=== PATIENT | male | born 1990 | race Asian ===

== ENCOUNTER 2016-10-05 12:27 | Inpatient (IN) | payer MEDICAID, OTHER ==
--- NOTE | 2016-10-05 15:09 | EDPHY ---
H & P Stated Complaint: [facility] by [facility] for [facility], schizoaffective episode Source: Patient Exam Limitations: No limitations - Personal History Current Tetanus/Diphtheria Vaccine: Unsure Current Tetanus Diphtheria and Acellular Pertussis (TDAP): Unsure - Medical/Surgical History Hx Asthma: No Hx Chronic Respiratory Disease: No Hx Diabetes: No Hx Cardiac Disease: No Hx Renal Disease: No Hx Cirrhosis: No Hx Alcoholism: No Hx HIV/AIDS: No Hx Splenectomy or Spleen Trauma: No Other PMH: lactose intolerant, broken arm when 6 yo., wears contacts. bipolar, schizoaffective - Family History Significant Family History: No pertinent family hx - Social History Smoking Status: Never smoked Alcohol Use: None Drug Use: None Time Seen by Provider: 10/05/16 14:42 HPI/ROS: CHIEF COMPLAINT: Hallucinations HISTORY OF PRESENT ILLNESS: The patient is a 26-year-old man whose brother in law brings him to the mental health clinic and then they were referred to the emergency department for worsening schizoaffective disorder. The patient has a history of schizoaffective disorder with several hospitalizations. He takes long-acting invega injections as well as lithium. He has been taking his medications. However his employer and family have noticed over the last 5 days that he has been increasingly distracted and occasionally catatonic. He hears 5 voices typically; God, of the a possible Juan, his father and 2 others. He will not disclose to what they say to him. He is currently denying that he hears them. He does appear to be responding to internal stimuli. He is very hesitant and halting in his speech. He denies recent fevers or illness. He denies recent trauma. He denies being in any pain. He is here voluntarily. He does state that he has been drinking more regularly over the last few months with holiday parties. He denies any drug use. REVIEW OF SYSTEMS: Constitutional: denies: chills, fever, recent illness, recent injury EENTM: denies: blurred vision, double vision, nose congestion Respiratory: denies: cough, shortness of breath Cardiac: denies: chest pain, irregular heart rate, lightheadedness, palpitations Gastrointestinal/Abdominal: denies: abdominal pain, diarrhea, nausea, vomiting, blood streaked stools Genitourinary: denies: dysuria, frequency, hematuria, pain Musculoskeletal: denies: joint pain, muscle pain Skin: denies: lesions, rash, jaundice, bruising Neurological: denies: headache, numbness, paresthesia, tingling, dizziness, weakness Hematologic/Lymphatic: denies: blood clots, easy bleeding, easy bruising Immunologic/allergic: denies: HIV/AIDS, transplant EXAM: GENERAL: Well-appearing, well-nourished and in no acute distress. HEAD: Atraumatic, normocephalic. EYES: Pupils equal round and reactive to light, extraocular movements intact, sclera anicteric, conjunctiva are normal. ENT: TMs normal, nares patent, oropharynx clear without exudates. Moist mucous membranes. NECK: Normal range of motion, supple without lymphadenopathy or JVD. LUNGS: Breath sounds clear to auscultation bilaterally and equal. No wheezes rales or rhonchi. HEART: Regular rate and rhythm without murmurs, rubs or gallops. ABDOMEN: Soft, nontender, normoactive bowel sounds. No guarding, no rebound. No masses appreciated. BACK: No CVA tenderness, no spinal tenderness, step-offs or deformities EXTREMITIES: Normal range of motion, no pitting or edema. No clubbing or cyanosis. NEUROLOGICAL: Cranial nerves II through XII grossly intact. Normal speech, normal gait. 5/5 strength, normal movement in all extremities, normal sensation PSYCH: See above SKIN: Warm, dry, normal turgor, no visible rashes or lesions. (Vick Wu) Constitutional: Initial Vital Signs Temperature (C) 36.5 C 10/05/16 12:38 Heart Rate 80 10/05/16 12:38 Respiratory Rate 16 10/05/16 12:38 Blood Pressure 123/85 H 10/05/16 12:38 O2 Sat (%) 96 10/05/16 12:38 O2 Delivery Mode Room Air Allergies/Adverse Reactions: No Known Allergies Allergy (Unverified 10/05/16 12:43) Home Medications: Medication Instructions Recorded Paliperidone Palmitate [Invega 117 mg IM ONCE 10/05/16 Sustenna] [place] Carbonate ER [Eskalith Cr 900 mg PO HS 10/06/16 450 mg (*)] Medical Decision Making ED Course/Re-evaluation: 7:00 a.m.- The patient has been stable throughout my ER shift. He was evaluated by the mental health worker and the plan is to place him at [facility] later today. The case has been signed out to Dr. Aleman. (Jeannie Medina) Patient is currently here voluntarily. I will not place him on a hold. He denies suicidal or homicidal ideation. His nbcxllr-lo-cyi is going to stay with him. He consisting of blood. 5:30 p.m. The patient is medically cleared for psychiatric evaluation. 9:00 p.m. the patient is awaiting psychiatric evaluation. Care transferred to Dr. Mendel Toussaint. He is not currently on a hold but is here voluntarily. ( Vick Wu) Differential Diagnosis: Partial list of the Differential diagnosis considered include but were not limited to; schizophrenia, bipolar, medication reaction and although unlikely based on the history and physical exam, I also considered infection, head injury. (Vick Wu) - Data Points Laboratory Results: Laboratory Results 10/05/16 15:27 10/05/16 15:27 Departure - Departure Disposition: [facility] IP Clinical Impression: Acute psychosis Condition: Fair
[2016-10-05 15:35] LABS: % IMMATURE GRANULYOCYTES 0.3 % (0.0-1.1); ABSOLUTE IMMATURE GRANULOCYTES 0.03 10^3/uL (0.00-0.10); ADD DIFF? NO; ADD MORPH? NO; ADD SCAN? NO; ATYPICAL LYMPHOCYTE FLAG 0 (0-99); FRAGMENT RBC FLAG 0 (0-99); HEMATOCRIT 46.7 % (40.0-51.0); HEMOGLOBIN 16.2 g/dL (13.7-17.5); LEFT SHIFT FLG 0 (0-99); LIPEMIA HEMOLYSIS FLAG 90 (0-99); MEAN CELL HEMOGLOBIN 30.5 pg (27.9-34.1); MEAN CELL HEMOGLOBIN CONCENTR. 34.7 g/dL (32.4-36.7); MEAN CELL VOLUME 87.9 fL (81.5-99.8); MEAN PLATELET VOLUME 11.4 fL (8.7-11.7); PLATELET CLUMPS FLAG 0 (0-99); PLATELET COUNT 276 10^3/uL (150-400); RED BLOOD CELL COUNT 5.31 10^6/uL (4.40-6.38); RED CELL DISTRIBUTION WIDTH 11.9 % (11.5-15.2)
[2016-10-05 16:09] LABS: ANION GAP 13 mEq/L (8-16); CALCIUM 9.5 mg/dL (8.5-10.4); CARBON DIOXIDE 26 mEq/l (22-31); CHLORIDE 105 mEq/L (97-110); CREATININE 0.8 mg/dL (0.7-1.3); ETHANOL SERUM < 10 mg/dL (0-10); GLOMERULAR FILTRATION RATE > 60; GLUCOSE 118 mg/dL (70-100); LITHIUM 0.4 mEq/L (0.6-1.2); POTASSIUM 4.3 mEq/L (3.5-5.2); SODIUM 144 mEq/L (134-144)
[2016-10-06] MEDS ORDERED: NICOTINE POLACRILEX 2 MG GUM B PRN (13:53)
[2016-10-06] MEDS ORDERED: LORazepam 0.5 MG TAB PO PRN (13:53)
[2016-10-06] MEDS ORDERED: ACETAMINOPHEN 325 MG TAB PO PRN (13:53)
[2016-10-06] MEDS ORDERED: OLANZapine DISINTEGR 10 MG TAB PO PRN (13:53)
[2016-10-06] MEDS ORDERED: MAG HYDROX/AL HYDROX/SIMETH 30 ML UDCUP PO PRN (13:53)
[2016-10-06] MEDS ORDERED: MAGNESIUM HYDROXIDE 30 ML UDCUP PO PRN (13:53)
--- NOTE | 2016-10-06 15:41 | BCON ---
[f rep st] BEHAVIORAL HEALTH CONSULTATION INTERNAL MEDICINE CONSULTATION DATE OF CONSULTATION: 10/06/2016 REFERRING PHYSICIAN: Cheko Huizar MD REASON FOR CONSULTATION: Medical clearance for inpatient behavioral health stay. HISTORY OF PRESENT ILLNESS: Mr. Narvaez came to the emergency department with his [id number] with a complaint of worsening symptoms of schizoaffective disorder. He had been compliant with his medications; however, he was increasingly distracted and occasionally catatonic per the emergency department note, and he had been hearing voices. He was evaluated by the mental health team and admitted for further psychiatric care. He is currently without any acute complaints. PAST MEDICAL HISTORY: Schizoaffective disorder with prior psychiatric hospitalizations. Otherwise he denies any history of any medical or surgical conditions. MEDICATIONS: 1. Paliperidone sustained release injection. 2. [place]. ALLERGIES: There are no known drug allergies. SOCIAL HISTORY: He is a nonsmoker and nondrinker. He lives with roommates in [place]. He works in [employer]. FAMILY HISTORY: Noncontributory. REVIEW OF SYSTEMS: A 10-point review of systems was conducted and was negative. PHYSICAL EXAM: VITALS: Blood pressure is 117/75, heart rate is 73, respiratory rate is 14, oxygen saturation is 94% on room air, temperature is 36.6 degrees centigrade. His weight is 72.6 kg for a body mass index of 23.6. GENERAL: This is a well-nourished, well-developed man with long hair, well- groomed, cooperative, and in no acute distress. HEENT: Extraocular movements are intact. Pupils are equal, round, and reactive to light. Mucous membranes are moist. Dentition is in good condition. NECK: Supple. HEART: Regular rate and rhythm with no murmurs, rubs, or gallops. LUNGS: Clear to auscultation bilaterally. ABDOMEN: Soft, nontender, nondistended with normoactive bowel sounds. EXTREMITIES: There is no there is no cyanosis, clubbing, or edema. NEUROLOGIC: He is alert and oriented x3. Cranial nerves 2 -12 are grossly intact. He has a reduced blink rate. There is no focal weakness. Sensation is intact to light touch. Gait is within normal limits. LABORATORY STUDIES: Drawn in the emergency department: CBC revealed a very slightly elevated neutrophil count at 6.82 and was otherwise within normal limits. Serum chemistry revealed an elevated glucose at 118 however, this was likely not fasting. Otherwise, renal function and electrolytes were within normal limits. Toxicology in the serum showed a lithium level subtherapeutic at 0.4 and negative for ethyl alcohol. Toxicology in the urine was negative for any substances of abuse. ASSESSMENT AND PLAN: Normal exam. I see no medical contraindications to the patient's continued stay in the inpatient behavioral health unit, or to any psychiatric medications or procedures. Thank you very much for including me in the care of this patient, and please do not hesitate to contact me or the hospitalist service should there be need for further medical evaluation. /[id number]/MODL MTDD
--- NOTE | 2016-10-06 16:11 | BAPA ---
[f rep st] ADMISSION PSYCHIATRIC ASSESSMENT DATE OF SERVICE: 10/06/2016 CHIEF COMPLAINT: "I have been doing a lot of thinking about thoughts." HISTORY OF PRESENT ILLNESS: The patient is a 26-year-old male who has a history of schizoaffec tive disorder. He was previously treated on our service by Dr. Sunil Zendejas from 08/29/2014 to , where he established his initial diagnosis. Since then, he has apparently had 2 other hospi talizations, 1 in [place] and 1 in [place] a month ago. 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 He came from his home in [place] to [place] as he states that he preferred to be in this hospital because "I can read the Bible, play the piano, and go to groups." He cannot identify any specific symptoms and denies any auditory hallucinations, though does appear to be internally preoccupied. On his previous hospitalization, he was very agitated and aggressive and required emergency medications. He is curr ently seeing Dr. Lino in [place] and has been on an Invega Sustenna shot and he believes his last on e was on the 10 of September. He states that he has been generally compliant with his lithium, though his admission level was 0.4. He is unable to give much information at all except to talk in kind of a circular manner about the meaning of life and the definition of love. He offers some bizarre and tangential references to that, though is difficult to interpret. PAST PSYCHIATRIC HISTORY: The patient sees Dr. Lino in [place]. He was previously a patient at [facility] and saw Dr. Knapp. He was [facility] , and apparently then took Risperdal and eventually Invega, and has been on Sustenna most recently. He has also taken lithium for some time. ALLERGIES: No known medical allergies. CURRENT MEDICATIONS: [place] 900 mg daily and Invega Sustenna unknown amount monthly. Patient belie ves his last injection was 09/10/2016. SOCIAL HISTORY: Patient lives in [place] with 2 roommates. He has a degree in chemical engineering f rom the [employer]. He was born in [place] and grew up in [place] with his mother. His f ather continues to live in [place]. He has 2 brothers and 2 sisters, with 1 sister living in [place] with her family. She is his primary support. The patient works as a computer systems architect in [employer] and states that this is good job that he enjoys. He is unable to give much more recent history exc ept to say at one point that he has been dating for the past week, but is vague and cannot complete t his thought. SUBSTANCE ABUSE HISTORY: Patient states he drinks intermittently, but denies any other drug use. Scooby noyola's urine drug screen was negative for all substances. FAMILY HISTORY: Patient has a brother who reportedly has bipolar disorder. ADMISSION LABORATORY: CBC is normal. Serum chemistries are normal. [place] level was 0.4. Urine d rug screen was negative for all substances and alcohol was less than detectable. MENTAL STATUS EXAMINATION: Reveals a healthy appearing, adequately groomed, casually dressed male. He struggles to interact and demonstrates significant psychomotor retardation. For example, when I e ntered his room and asked if he will come to my office he is somewhat delayed but says yes, and then follows me from a considerable distance behind, walking very slowly. He shows similar psychomotor re tardation just sitting with masked facies and decreased eye blink. He appears to be internally focus ed, though he denies auditory hallucinations. His affect is otherwise blunted, stable. His mood is described as "fine." His thought process is disorganized. His thought content reveals odd thoughts and loose associations. He is alert and oriented to person, place, time, and situation. There is no evidence of acute delirium or intoxication. His intellect appears to be above average as evidenced by his educational and occupational histories. He denies any thoughts of suicide. His insight and j udgment appear to be fair to good. IMPRESSION: Schizoaffective disorder, bipolar type, chronic with acute exacerbation, work stress, ch ronic illness, recurrent hospitalization. The patient is a 26-year-old male who presents at this time with what appears to be an another or ongoing decompensation of his schizoaffective disorder. He is very disorganized and idiosyncratic , as well as internally focused. He presented to the hospital because he felt like he needed help, b ut cannot in any way explain what he wants help for today. We will observe and provide some amount o f Invega at bedtime. I will get ahold of Dr. Lino tomorrow to see if she has any recommendations a nd attempt to obtain the records from [facility]. ESTIMATED LENGTH OF STAY: 7-10 days. /[id number]/MODL
--- NOTE | 2016-10-07 16:31 | SOAPPROG ---
SODUNG Progress Note Assessment/Plan: Assessment: Plan: 10/07/16 16:31 Remains very ill. Will start PO Invega. Need to get records from [facility] to find out dose and timing of Sustenna. Subjective: Pt seen, discussed with staff. Reports feeling "better" today. More appropriately conversant. States his brother in law wants a family meeting tomorrow. Scheduled this for 1130. Seems more organized at times today, though remains internally preoccupied. Objective: Vital Signs Temp Pulse Resp BP Pulse Ox 36.7 C 66 16 117/77 93 10/07/16 06:00 10/07/16 06:00 10/07/16 06:00 10/07/16 06:00 10/07/16 06:00 - Time Spent With Patient Time Spent With Patient: 15" - Pending Discharge Pending Discharge Within 24 Hours: No Pending Discharge Within 48 Hours: No ICD10 Worksheet Patient Problems: Problems Problem Status Diagnosed Acute psychosis Acute Psychosis Acute
[2016-10-07] MEDS ORDERED: PALIPERIDONE 3 MG TAB.ER PO SCH (21:00)
[2016-10-07] MEDS: LITHIUM CARBONATE ER 450 MG TAB PO SCH (21:16)
[2016-10-08] MEDS ORDERED: FLU VACC QS 2016-17(3-64YR)/PF 0.5 ML SYR (FLUARIX QUAD) IM ONE ×2 (08:25→10:57)
[2016-10-08] MEDS ORDERED: PALIPERIDONE 3 MG TAB.ER PO SCH (12:04)
--- NOTE | 2016-10-08 18:10 | SOAPPROG ---
SOAP Progress Note Assessment/Plan: Assessment: Plan: 10/07/16 16:31 Remains very ill. Will start PO Invega. Need to get records from [facility] to find out dose and timing of Sustenna. 10/08/16 18:10 Clinically about the same. Family wants to make sure pt is fully stabilized prior to d/c and he is generally agreeable to this. Will increase PO Invega to 4mg, monitor. Defer further Sustenna at this time due to pt's refusal. Subjective: Pt seen, discussed with staff. Reports feeling "pretty normal." Pt's brother in law presented for family meeting and we discussed pt's current and past treatments. Information from indicates he was getting a 78mg Invega Sustenna monthly. Pt is agreeable to taking oral Invega, but not to increasing Sustenna dose. Objective: Vital Signs Temp Pulse Resp BP Pulse Ox 36.2 C 69 14 117/77 94 10/08/16 03:27 10/08/16 03:27 10/08/16 03:27 10/08/16 03:27 10/08/16 03:27 MSE: Calm, coop. Affect is blunted, stable. Mood is "pretty good." TP linear at times, but also demonstrates blocking and possible derailment. He is also very concrete and internally preoccupied at times. Unable to fluently process information from family, gets stuck on specific words, disagrees with concepts and then agrees. - Time Spent With Patient Time Spent With Patient: 45" - Pending Discharge Pending Discharge Within 24 Hours: No Pending Discharge Within 48 Hours: No ICD10 Worksheet Patient Problems: Problems Problem Status Diagnosed Acute psychosis Acute Psychosis Acute
[2016-10-08] MEDS: LITHIUM CARBONATE ER 450 MG TAB PO SCH (21:05)
[2016-10-09] MEDS ORDERED: PALIPERIDONE PALMITATE 156 MG/ML SYR IM ONE (09:00)
[2016-10-09] MEDS ORDERED: PALIPERIDONE 3 MG TAB.ER PO SCH (13:30)
--- NOTE | 2016-10-09 13:30 | SOAPPROG ---
CODEY Progress Note Assessment/Plan: Assessment: Plan: 10/07/16 16:31 Remains very ill. Will start PO Invega. Need to get records from [facility] to find out dose and timing of Sustenna. 10/08/16 18:10 Clinically about the same. Family wants to make sure pt is fully stabilized prior to d/c and he is generally agreeable to this. Will increase PO Invega to 4mg, monitor. Defer further Sustenna at this time due to pt's refusal. 10/09/16 13:29 Remains very disorganized. His sx's are consistent with a thought disorder and support Schizoaffective D/o dx. Will increase Invega to 4.5mg for ease of dosing and monitor. Subjective: Pt seen, discussed with staff. Reports feeling "really good." Struggling to interact with others. Staying mostly in his room, but will come out and walk in the halls. Internally preoccupied. Focused on symbolism in the bible that is difficult to understand such as "Figs in the old testament are sight." Objective: Vital Signs Temp Pulse Resp BP Pulse Ox 36.6 C 74 12 133/74 H 95 10/09/16 06:25 10/09/16 06:25 10/09/16 06:25 10/09/16 06:25 10/09/16 06:25 MSE: Adequately groomed, guarded. Affect is constricted, stable. Mood is "great." TP disorganized with blocking. TC reveals internal preoccupation, disorganization. - Time Spent With Patient Time Spent With Patient: 15" - Pending Discharge Pending Discharge Within 24 Hours: No Pending Discharge Within 48 Hours: No ICD10 Worksheet Patient Problems: Problems Problem Status Diagnosed Acute psychosis Acute Psychosis Acute
[2016-10-09] MEDS: LITHIUM CARBONATE ER 450 MG TAB PO SCH (21:25)
[2016-10-09] MEDS: PALIPERIDONE 3 MG TAB.ER PO SCH (21:25)
[2016-10-10] MEDS: PALIPERIDONE 3 MG TAB.ER PO SCH (21:02)
[2016-10-10] MEDS: LITHIUM CARBONATE ER 450 MG TAB PO SCH (21:02)
--- NOTE | 2016-10-11 00:45 | SOAPPROG ---
SOAP Progress Note Assessment/Plan: Assessment: Plan: 10/07/16 16:31 Remains very ill. Will start PO Invega. Need to get records from [facility] to find out dose and timing of Sustenna. 10/08/16 18:10 Clinically about the same. Family wants to make sure pt is fully stabilized prior to d/c and he is generally agreeable to this. Will increase PO Invega to 4mg, monitor. Defer further Sustenna at this time due to pt's refusal. 10/09/16 13:29 Remains very disorganized. His sx's are consistent with a thought disorder and support Schizoaffective D/o dx. Will increase Invega to 4.5mg for ease of dosing and monitor. 10/11/16 00:45 Some improvement. Increased oral Invega to 6mg yesterday. CCM Subjective: LATE ENTRY FOR 10/10/16 Pt seen, discussed with staff. Has improved in overall organization. Took the 6mg Invega oral and understands the need for increased dosing. No behavioral issues. Remains internally focused and odd. Objective: Vital Signs Temp Pulse Resp BP Pulse Ox 36.6 C 67 12 112/66 96 10/10/16 06:22 10/10/16 06:22 10/10/16 06:22 10/10/16 06:22 10/10/16 06:22 MSE: Moderately agitated, walking around room. Internally distracted. Affect is constriced, stable. Mood is "good." TP disrorganized. TC reveals odd beliefs and ALYSSA's. - Time Spent With Patient Time Spent With Patient: 15" - Pending Discharge Pending Discharge Within 24 Hours: No ICD10 Worksheet Patient Problems: Problems Problem Status Diagnosed Acute psychosis Acute Psychosis Acute
--- NOTE | 2016-10-11 14:24 | SOAPPROG ---
CODEY Progress Note Assessment/Plan: Assessment: Plan: 10/07/16 16:31 Remains very ill. Will start PO Invega. Need to get records from [facility] to find out dose and timing of Sustenna. 10/08/16 18:10 Clinically about the same. Family wants to make sure pt is fully stabilized prior to d/c and he is generally agreeable to this. Will increase PO Invega to 4mg, monitor. Defer further Sustenna at this time due to pt's refusal. 10/09/16 13:29 Remains very disorganized. His sx's are consistent with a thought disorder and support Schizoaffective D/o dx. Will increase Invega to 4.5mg for ease of dosing and monitor. 10/11/16 00:45 Some improvement. Increased oral Invega to 6mg yesterday. CCM 10/11/16 14:23 Much better today. CCM. Anticipate d/c Friday or Friday. Subjective: Pt seen, discussed with staff. Reports feeling "a lot better." Affect is better modulated and he is more appropriate in his interactions with others. Compliant with meds. Agreeable to continuing the 6mg Invega. Objective: Vital Signs Temp Pulse Resp BP Pulse Ox 36.4 C 62 14 113/65 97 10/11/16 06:00 10/11/16 06:00 10/11/16 06:00 10/11/16 06:00 10/11/16 06:00 MSE: Calmer, coop. Much better eye contact. Less halting speech. TP is generally linear with no blocking noted. TC reveals no odd references. - Time Spent With Patient Time Spent With Patient: 25" - Pending Discharge Pending Discharge Within 24 Hours: No Pending Discharge Within 48 Hours: No ICD10 Worksheet Patient Problems: Problems Problem Status Diagnosed Acute psychosis Acute Psychosis Acute
[2016-10-11] MEDS: LITHIUM CARBONATE ER 450 MG TAB PO SCH (18:12)
[2016-10-11] MEDS: PALIPERIDONE 3 MG TAB.ER PO SCH (20:18)
[2016-10-12 09:02] LABS: LITHIUM 0.8 mEq/L (0.6-1.2)
--- NOTE | 2016-10-12 11:02 | SOAPPROG ---
SOAP Progress Note Assessment/Plan: Assessment: Pt is a 26 y/o male with a hx of Schizoaffective D/O admitted on an M1 for acute decompensation. He is improving on Li and oral Invega and pt will probably be D/C'd early this week. Plan:Li level=0.8 will continue current meds-pt improving D/C early this week after family meeting 10/12/16 10:58 Subjective: Pt asks to schedule a family meeting for Friday at 11:30 am-he states this is per Dr Huizar Objective: Vital Signs Temp Pulse Resp BP Pulse Ox 36.6 C 64 16 122/71 H 97 10/12/16 06:00 10/12/16 06:00 10/12/16 06:00 10/12/16 06:00 10/12/16 06:00 Pt is A+O x4 mood-euthymic affect-appr no A/V H no S/H I thoughts-logical speech-wnl slept 8.5 hours good appetite no acute sx of psychosis/gogo no ALYSSA I/J-improved - Time Spent With Patient Time Spent With Patient: 20' - Pending Discharge Pending Discharge Within 24 Hours: No Pending Discharge Within 48 Hours: Yes Pending Discharge Date: 10/14/16 Pending Discharge Time: 11:00 ICD10 Worksheet Patient Problems: Problems Problem Status Diagnosed Acute psychosis Acute Psychosis Acute
[2016-10-12] MEDS: LITHIUM CARBONATE ER 450 MG TAB PO SCH (19:59)
[2016-10-12] MEDS: PALIPERIDONE 3 MG TAB.ER PO SCH (20:00)
--- NOTE | 2016-10-13 11:08 | SOAPPROG ---
SOAP Progress Note Assessment/Plan: Assessment: Pt is a 26 y/o male with a hx of Schizoaffective D/O admitted on an M1 for acute decompensation. He is improving on Li and oral Invega and pt will probably be D/C'd tomorrow. Plan:Li level=0.8 from 10/12/16 will continue current meds-pt much improved family meeting tomorrow at 11:30 am and D/C 10/13/16 12:15 Subjective: no c/o -aware of family meeting tomorrow and looking forward to D/C Objective: Vital Signs Temp Pulse Resp BP Pulse Ox 36.4 C 65 14 112/58 L 94 10/13/16 06:15 10/13/16 06:15 10/13/16 06:15 10/13/16 06:15 10/13/16 06:15 Pt is A+O x4 mood-euthymic affect-appr denies A/V H thoughts-logical speech-wnl memory-fair no S/H I no delusions slept 9 hours appetite and energy level-wnl no ALYSSA I/J-improved - Time Spent With Patient Time Spent With Patient: 20' - Pending Discharge Pending Discharge Within 24 Hours: Yes Pending Discharge Within 48 Hours: Yes Pending Discharge Date: 10/14/16 Pending Discharge Time: 11:00 ICD10 Worksheet Patient Problems: Problems Problem Status Diagnosed Acute psychosis Acute Psychosis Acute
[2016-10-13] MEDS: PALIPERIDONE 3 MG TAB.ER PO SCH (21:54)
[2016-10-13] MEDS: LITHIUM CARBONATE ER 450 MG TAB PO SCH (21:54)
[2016-10-14 06:49] VITALS: BP 114/60; PULSE 70; RESP 12; TEMP 97.6; O2SAT 93
--- NOTE | 2016-10-14 10:22 | SOAPPROG ---
SOAP Progress Note Assessment/Plan: Assessment: Pt is a 26 y/o male with a hx of Schizoaffective D/O admitted on an M1 for acute decompensation. He is improving on Li and oral Invega and pt will probably be D/C'd tomorrow. Plan:Li level=0.8 from 10/12/16 will continue current meds-pt much improved family meeting today with CM at 11:30 am and D/C 10/14/16 10:20 Subjective: no c/o looking forward to D/C Objective: Vital Signs Temp Pulse Resp BP Pulse Ox 36.4 C 70 12 114/60 93 10/14/16 06:48 10/14/16 06:48 10/14/16 06:48 10/14/16 06:48 10/14/16 06:48 Pt is A+O x4 mood-euthymic affect-appr thoughts-logical speech-wnl sleep/appetite/energy level-wnl no A/V H no delusions no S/H I no sx psychosis/gogo memory-intact no ALYSSA I/J-improved - Time Spent With Patient Time Spent With Patient: 20' - Pending Discharge Pending Discharge Within 24 Hours: Yes Pending Discharge Within 48 Hours: Yes Pending Discharge Date: 10/15/16 Pending Discharge Time: 11:00 ICD10 Worksheet Patient Problems: Problems Problem Status Diagnosed Acute psychosis Acute Psychosis Acute
== END 2016-10-14 13:38 | disposition home or self-care (01) | DRG 885 ==
LOC: BBEH 10-06 12:30
PROVIDERS: ADMIT Psychiatry & Neurology Psychiatry; ATTEND Psychiatry & Neurology Psychiatry
DX: F25.0 Schizoaffective disorder, bipolar type (principal)
CPT/HCPCS: 80305; G0008; G0480; J2426

== ENCOUNTER 2017-03-25 07:26 | Inpatient (IN) | payer BC, OTHER ==
--- NOTE | 2017-03-25 07:28 | EDPHY ---
H & P Time Seen by Provider: 03/25/17 07:27 HPI/ROS: CHIEF COMPLAINT: Hallucinating HISTORY OF PRESENT ILLNESS: The patient has a history of schizoaffective disorder and bipolar mood disorder. He presents to the emergency department with several days of hallucinations. The patient reportedly is on Risperdal and lithium. The patient is unable to state whether he has been compliant with medications. The patient denies suicidal or homicidal ideation. The patient denies any drug ingestion. The patient works as a computer analyst supervisor and does have history of occasional bouts of decompensation. The patient was last hospitalized at our inpatient psychiatric facility in September of this year. REVIEW OF SYSTEMS: A comprehensive 10 point review of systems is otherwise negative aside from elements mentioned in the history of present illness. Source: Patient Exam Limitations: No limitations - Medical/Surgical History Hx Asthma: No Hx Chronic Respiratory Disease: No Hx Diabetes: No Hx Cardiac Disease: No Hx Renal Disease: No Hx Cirrhosis: No Hx Alcoholism: No Hx HIV/AIDS: No Hx Splenectomy or Spleen Trauma: No Other PMH: lactose intolerant, broken arm when 6 yo., wears contacts. bipolar, schizoaffective - Social History Smoking Status: Never smoked - Physical Exam Exam: General Appearance: Alert, no distress Eyes: Pupils equal and round no pallor or injection ENT, Mouth: Mucous membranes moist Respiratory: There are no retractions, lungs are clear to auscultation Cardiovascular: Regular rate and rhythm Gastrointestinal: Abdomen is soft and nontender, no masses, bowel sounds normal Neurological: A&O, normal motor function, normal sensory exam, normal cranial nerves Skin: Warm and dry, no rashes Musculoskeletal: Neck is supple nontender Extremities: symmetrical, full range of motion Psychiatric: Patient is alert and oriented x2, mildly agitated, actively hallucinating, denies suicidal ideation, flat affect Constitutional: Initial Vital Signs Temperature (C) 36.7 C 03/25/17 07:29 Heart Rate 81 03/25/17 07:29 Respiratory Rate 18 03/25/17 07:29 Blood Pressure 125/87 H 03/25/17 07:29 O2 Sat (%) 99 03/25/17 07:29 O2 Delivery Mode Room Air Allergies/Adverse Reactions: No Known Allergies Allergy (Verified 03/25/17 07:28) Home Medications: Medication Instructions Recorded [place] Carbonate ER [Eskalith Cr 900 mg PO HS #60 tab 10/14/16 450 mg (*)] risperiDONE [Risperdal] 6 mg PO HS 03/25/17 Medical Decision Making ED Course/Re-evaluation: I reviewed the patient's past medical records including his recent hospitalization on the inpatient psychiatric unit during September 2016. The patient presents to the ED with hallucinations and psychosis. The patient has been placed on an M1 psychiatric hold. The patient received 10 mg of Zyprexa. The patient has been medically cleared for psychiatric evaluation by myself at 9 :00 a.m.. The patient was evaluated by the psychiatric service here. The patient is felt to meet criteria for inpatient psychiatric hospitalization. The patient was accepted for admission to the inpatient unit at [facility] by Dr. Cheko Huizar. I have filled out the EMTALA transfer form. Differential Diagnosis: Differential diagnosis considered includes schizoaffective disorder, psychosis, metabolic abnormality, intoxication - Data Points Laboratory Results: Laboratory Results 03/25/17 08:05 03/25/17 08:05 03/25/17 03/25/17 03/25/17 08:30 08:05 08:05 WBC 7.95 10^3/uL 10^3/uL (3.80-9.50) RBC 5.62 10^6/uL 10^6/uL (4.40-6.38) Hgb 16.8 g/dL g/dL (13.7-17.5) Hct 48.4 % % (40.0-51.0) MCV 86.1 fL fL (81.5-99.8) MCH 29.9 pg pg (27.9-34.1) MCHC 34.7 g/dL g/dL (32.4-36.7) RDW 11.6 % % (11.5-15.2) Plt Count 312 10^3/uL 10^3/uL (150-400) MPV 11.5 fL fL (8.7-11.7) Neut % (Auto) 72.5 % % (39.3-74.2) Lymph % (Auto) 18.4 % % (15.0-45.0) [place] % (Auto) 7.7 % % (4.5-13.0) Eos % (Auto) 0.6 % % (0.6-7.6) Baso % (Auto) 0.5 % % (0.3-1.7) Nucleat RBC Rel Count 0.0 % % (0.0-0.2) Absolute Neuts (auto) 5.77 10^3/uL 10^3/uL (1.70-6.50) Absolute Lymphs (auto) 1.46 10^3/uL 10^3/uL (1.00-3.00) Absolute Monos (auto) 0.61 10^3/uL 10^3/uL (0.30-0.80) Absolute Eos (auto) 0.05 10^3/uL 10^3/uL (0.03-0.40) Absolute Basos (auto) 0.04 10^3/uL 10^3/uL (0.02-0.10) Absolute Nucleated RBC 0.00 10^3/uL 10^3/uL (0-0.01) Immature Gran % 0.3 % % (0.0-1.1) Immature Gran # 0.02 10^3/uL 10^3/uL (0.00-0.10) Sodium 145 mEq/L H mEq/L (134-144) Potassium 4.1 mEq/L mEq/L (3.5-5.2) Chloride 104 mEq/L mEq/L (97-110) Carbon Dioxide 24 mEq/l mEq/l (22-31) Anion Gap 17 mEq/L H mEq/L (8-16) BUN 9 mg/dL mg/dL (7-23) Creatinine 1.2 mg/dL mg/dL (0.7-1.3) Estimated GFR > 60 Glucose 89 mg/dL mg/dL (70-100) Calcium 10.5 mg/dL H mg/dL (8.5-10.4) Urine Opiates Screen NEGATIVE (NEGATIVE) Urine Barbiturates NEGATIVE (NEGATIVE) Ur Phencyclidine Scrn NEGATIVE (NEGATIVE) Ur Amphetamine Screen NEGATIVE (NEGATIVE) U Benzodiazepines Scrn NEGATIVE (NEGATIVE) [place] < 0.2 mEq/L L mEq/L (0.6-1.2) Urine Cocaine Screen NEGATIVE (NEGATIVE) U Marijuana (THC) Screen NEGATIVE (NEGATIVE) Ethyl Alcohol < 10 mg/dL mg/dL (0-10) Medications Given: Discontinued Medications Olanzapine (Zyprexa Zydis) 10 mg PO EDNOW ONE Stop: 03/25/17 07:52 Last Admin: 03/25/17 08:14 Dose: 10 mg Departure - Departure Disposition: [facility] IP Clinical Impression: Psychosis, Schizoaffective disorder, Bipolar 1 disorder Condition: Good Referrals: NONE *PRIMARY CARE P,. [Primary Care Provider] - As per Instructions
[2017-03-25] MEDS ORDERED: OLANZapine DISINTEGR 10 MG TAB PO ONE (07:51)
[2017-03-25 08:18] LABS: % IMMATURE GRANULYOCYTES 0.3 % (0.0-1.1); ABSOLUTE IMMATURE GRANULOCYTES 0.02 10^3/uL (0.00-0.10); ADD DIFF? NO; ADD MORPH? NO; ADD SCAN? NO; ATYPICAL LYMPHOCYTE FLAG 0 (0-99); FRAGMENT RBC FLAG 0 (0-99); HEMATOCRIT 48.4 % (40.0-51.0); HEMOGLOBIN 16.8 g/dL (13.7-17.5); LEFT SHIFT FLG 0 (0-99); LIPEMIA HEMOLYSIS FLAG 90 (0-99); MEAN CELL HEMOGLOBIN 29.9 pg (27.9-34.1); MEAN CELL HEMOGLOBIN CONCENTR. 34.7 g/dL (32.4-36.7); MEAN CELL VOLUME 86.1 fL (81.5-99.8); MEAN PLATELET VOLUME 11.5 fL (8.7-11.7); PLATELET CLUMPS FLAG 0 (0-99); PLATELET COUNT 312 10^3/uL (150-400); RED BLOOD CELL COUNT 5.62 10^6/uL (4.40-6.38); RED CELL DISTRIBUTION WIDTH 11.6 % (11.5-15.2)
[2017-03-25 08:43] LABS: ANION GAP 17 mEq/L (8-16); CALCIUM 10.5 mg/dL (8.5-10.4); CARBON DIOXIDE 24 mEq/l (22-31); CHLORIDE 104 mEq/L (97-110); CREATININE 1.2 mg/dL (0.7-1.3); ETHANOL SERUM < 10 mg/dL (0-10); GLOMERULAR FILTRATION RATE > 60; GLUCOSE 89 mg/dL (70-100); POTASSIUM 4.1 mEq/L (3.5-5.2); SODIUM 145 mEq/L (134-144)
[2017-03-25 08:45] LABS: LITHIUM < 0.2 mEq/L (0.6-1.2)
[2017-03-25] MEDS ORDERED: OLANZapine DISINTEGR 10 MG TAB PO PRN (21:58)
[2017-03-25] MEDS ORDERED: LORazepam 0.5 MG TAB PO PRN (21:58)
[2017-03-25] MEDS ORDERED: MAGNESIUM HYDROXIDE 30 ML UDCUP PO PRN (21:58)
[2017-03-25] MEDS ORDERED: MAG HYDROX/AL HYDROX/SIMETH 30 ML UDCUP PO PRN (21:58)
[2017-03-25] MEDS ORDERED: ACETAMINOPHEN 325 MG TAB PO PRN (21:58)
[2017-03-25] MEDS ORDERED: NICOTINE POLACRILEX 2 MG GUM B PRN (21:58)
[2017-03-25] MEDS: LITHIUM CARBONATE ER 450 MG TAB PO SCH (22:13)
[2017-03-25] MEDS: risperiDONE 2 MG TAB PO SCH (22:13)
--- NOTE | 2017-03-26 15:00 | BAPA ---
[f rep st] ADMISSION PSYCHIATRIC ASSESSMENT DATE OF SERVICE: 03/26/2017 CHIEF COMPLAINT: "I just stopped taking my medicine." HISTORY OF PRESENT ILLNESS: Patient is a 26-year-old male with a history of severe recurrent bipola r disorder, with psychosis. He has been admitted to our facility on several occasions, the last lesly ng on 10/06 to 10/14 of this year. On each occasion he has presented in a manic and psychotic state , though has stabilized fairly rapidly. On this occasion, the patient presented to the emergency de partment of his own volition requesting admission to our facility. He lives in [facility] but drove apparently all the way to the [place] because he wanted to be hospitalized here where he has b dwaine treated in the past. After his hospitalization here in September into October, he reports going to stay with his sister and [id number] for about a week and then returning to work and his [employer] activities after that. He states he has had no problems since that time, and had been functioning normally until very recently when "I got too distracted." He states that "I had a lot on my mind" and told the evaluators in the emergency department that he was hearing up to 5 different voices dis tracting him from his work. He admits to me that he has discontinued his medications, and his lithi um level on admission was less than detectable. He cannot explain however why he did this or if the re was anything about the medicines he did not like. He states he has been seeing Dr. Lino on a r egular basis and had been compliant with his medicines until he stopped them. He is unable to tell me exactly when he stopped them. Our observations currently on the unit is that he is very disorgan ized and internally preoccupied. He appears to be hallucinating and is unable to adequately attend to an interview or answer questions in a reasonable manner. PAST PSYCHIATRIC HISTORY: The patient sees Dr. Lino in [place]. He was on Invega when he left her e with the [place], but apparently has gone back to oral Risperdal instead. He has always taken li thium. This is his 6th hospitalization in the last approximately 18 months. ALLERGIES: No known medical allergies. CURRENT MEDICATIONS: [place] 900 mg daily, and Risperdal 6 mg at h.s. SOCIAL HISTORY: Patient lives in [place] with 2 roommates. The story goes that he met them when the y were homeless and allowed them to stay in his spare bedroom. His [id number] went to check thi s out back in September and said that they were actually very nice people and were helping him out, cl eaning and taking care of his apartment when he was not doing well. They apparently continue to paul e with him. He has a degree in chemical engineering from the [employer]. He is was born in [place]. He grew up in the [place] in [place] with his mother, though his father continue d to live in [place]. He has 2 brothers and 2 sisters with 1 sister living in [place] with her ebony jhaveri. The sister and her are his primary supports. He works as a computer training specialist in [employer], and he states this is a good job. It is known to me that in September his boss was giving him m ore or less of an ultimatum that he needed to be compliant with his treatments and not have relapses or he would not be able to continue to be employed there. SUBSTANCE ABUSE HISTORY: Patient states that he drinks intermittently and last drank approximately a week ago. He denies any other drug use. FAMILY HISTORY: Patient has a brother who reportedly has bipolar. ADMISSION LABORATORY: CBC is normal. Serum chemistry shows sodium slightly up at 145, otherwise no rmal. Urine drug screen is negative for all substances. [place] is less than detectable. MENTAL STATUS EXAMINATION: Reveals a healthy-appearing male who is dressed in hospital garb. He is disheveled with his hair standing up and appears somewhat confused. He is internally preoccu pied and either blocks or derails when he starts to answer most questions. He will abruptly stand u p, walk down the holland and come back and sit down as if nothing had ever happened. His affect is odd with inappropriate smiles and then reverting to a blunted baseline. His mood is described as "mess ed up." His thought process is disorganized with prominent blocking and derailment. His thought co ntent reveals what appears to be attention to internal stimuli and a previous report of auditory pamella lucinations that he could not properly describe. He is alert and oriented to person, place, time, a nd situation, and his sensorium is clear. There is no evidence of delirium. The patient's intellec t appears to be above average, as evidenced by his educational occupational histories, fund of knowl edge, and vocabulary. He denies any thoughts of suicide homicide or violence. His insight and judg ment appear to be marginal. IMPRESSION: Schizoaffective disorder bipolar type chronic with acute exacerbation, chronic work str ess, chronic illness, rehospitalization. The patient is a 26-year-old, male with a history of schizoaffective disorder, bipolar typ e. He presents at this time with a recurrent psychotic gogo in the presence of medication noncompl iance. It is unclear why he would become noncompliant as he was reportedly stable for about 6 month s. We will restart his previous medications, including Risperdal and lithium, and contact his outpa tient provider, Dr. Lino. Estimated length of stay is 3-5 days. /[id number]/MODL
[2017-03-26] MEDS: risperiDONE 2 MG TAB PO SCH (20:29)
[2017-03-26] MEDS: LITHIUM CARBONATE ER 450 MG TAB PO SCH (20:29)
--- NOTE | 2017-03-27 08:48 | BCON ---
[f rep st] BEHAVIORAL HEALTH CONSULTATION INTERNAL MEDICINE CONSULTATION DATE OF CONSULTATION: 03/26/2017 REFERRING PHYSICIAN: Cheko Huizar MD REASON FOR REFERRAL: Medical clearance for inpatient behavioral health stay. HISTORY OF PRESENT ILLNESS: The patient came to the emergency department yesterday with several days of hallucinations. He was unsure whether or not he had been compliant with his medications. He was noted to be internally distracted. He was evaluated by the mental health team and was admitted for further psychiatric care. He currently is without any acute complaints. PAST MEDICAL HISTORY: Bipolar disorder, schizoaffective type. PAST SURGICAL HISTORY: He denies any history of surgeries. MEDICATIONS: Prior to admission: 1. [place] carbonate 900 mg at bedtime. 2. Risperidone 6 mg at bedtime. ALLERGIES: There are no known drug allergies. SOCIAL HISTORY: He is single, he lives with roommates. 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 He is a nonsmoker. He uses occasional alcohol. FAMILY HISTORY: Noncontributory. REVIEW OF SYSTEMS: He denies pain, cough, dyspnea, nausea, vomiting, constipation or diarrhea, dysuria or urinary frequency. He reports a normal appetite. He does not feel thirsty. He has not had fevers or chills or weight gain or weight loss. Otherwise, a 10-point review of systems is negative. PHYSICAL EXAM: VITAL SIGNS: Blood pressure is 115/77, heart rate is 67, respiratory rate is 12, oxygen saturation is 93% on room air, temperature is 36.6 degrees centigrade. His weight is 69.9 kg for a body mass index of 24.1. GENERAL: This is a well-nourished, well-developed man, appears his chronologic age, cooperative, and in no acute distress. HEENT: Extraocular movements are intact. Pupils are equal, round, and reactive to light. Mucous membranes are moist. Dentition is in good condition. He has an uncrowded airway, Mallampati class 1. NECK: Supple with no thyromegaly. HEART: There is a regular rate and rhythm with no murmurs, rubs, or gallops. LUNGS: Clear to auscultation bilaterally. ABDOMEN: Soft, nontender, and nondistended with normoactive bowel sounds. EXTREMITIES: There is no cyanosis, clubbing, or edema. NEUROLOGIC: He is alert, orientation was not checked. Cranial nerves 2-12 are grossly intact. There is no focal weakness. Sensation is intact to light touch. LABORATORY STUDIES: Drawn in the emergency department: CBC was entirely within normal limits. Serum chemistry revealed a slightly elevated sodium at 145 and a slightly elevated anion gap at 17, likely due to the elevated sodium, calcium was slightly elevated at 10.5. Otherwise, renal function and electrolytes were within normal limits. Toxicology screen in the serum was negative for ethyl alcohol. [place] was below the lower limits of detection of assay. Serum toxicology screen was negative for any substances of abuse. ASSESSMENT/RECOMMENDATIONS: 1. Mental health issues, pending further evaluation and management per Psychiatry and the Mental Health team. 2. Hypernatremia, likely has to do with reduced oral intake, though currently he does not appear to have any dehydration, is very mild and there is no indication for any further evaluation. I see no medical contraindications to the patient's continued stay on the inpatient behavioral health unit or to any psychiatric medications or procedures. Thank you very much for including me in the care of this patient, and please do not hesitate to contact me or the hospitalist service should there be need for further medical evaluation. /[id number]/MODL MTDD
--- NOTE | 2017-03-27 11:06 | SOAPPROG ---
SOAP Progress Note Assessment/Plan: Assessment: Plan: 03/27/17 11:04 Remains disorganized. Eating and sleeping. CCM. Subjective: Pt seen, discussed with staff. Reports feeling "fine." Isolating in his room sleeping today. Remains disorganized, struggling to participate appropriately in groups and interact appropriately with others. Objective: Vital Signs Temp Pulse Resp BP Pulse Ox 36.2 C 73 14 117/74 92 03/27/17 06:00 03/27/17 06:00 03/27/17 06:00 03/27/17 06:00 03/27/17 06:00 MSE: Disheveled, lying in bed. Affect is blunted, stable. Mood is "fine." TP disorganized. TC reveals some internal preoccupation, possible RIS, blocking /derailment. Denies AH's, but appears guarded on the subject. - Time Spent With Patient Time Spent With Patient: 15" ICD10 Worksheet Patient Problems: Problems Problem Status Onset Bipolar 1 disorder Acute Psychosis Acute Schizoaffective disorder Acute Acute psychosis Acute Psychosis Acute
[2017-03-27] MEDS: risperiDONE 2 MG TAB PO SCH (20:13)
[2017-03-27] MEDS: LITHIUM CARBONATE ER 450 MG TAB PO SCH (20:13)
--- NOTE | 2017-03-28 13:47 | SOAPPROG ---
SOAP Progress Note Assessment/Plan: Assessment: Plan: 03/27/17 11:04 Remains disorganized. Eating and sleeping. CCM. 03/28/17 13:47 Much improved today. Disorganization is improving, psychosis is abating. Will decrease Risperdal to 2mg at patient's request, at least until I can talk with Dr. Gupta to confirm the dose. Subjective: Pt seen, discussed with staff. Reports feeling "much better" today. He is notably clearer, better able to converse appropriately and participate in groups. He remains somewhat confuse, however, and is unable to remember talking with me yesterday. He would only take 2mg of Risperdal last night as he insists this is his normal outpatient dose. I placed a call to pt's outpt psychiatrist, Dr. Gupta and left a message. I have not heard back from her yet. Objective: Vital Signs Temp Pulse Resp BP Pulse Ox 36.7 C 71 16 112/73 97 03/28/17 06:00 03/28/17 06:00 03/28/17 06:00 03/28/17 06:00 03/28/17 06:00 MSE: Calm, coop. More focused, less distractible. Affect is better modulated , approp. Mood is "better." TP is linear for longer periods of time though he continues to block or derail. TC reveals continued RIS with likely AH's, though he denies this. - Time Spent With Patient Time Spent With Patient: 25" - Pending Discharge Pending Discharge Within 24 Hours: No Pending Discharge Within 48 Hours: No ICD10 Worksheet Patient Problems: Problems Problem Status Onset Bipolar 1 disorder Acute Psychosis Acute Schizoaffective disorder Acute Acute psychosis Acute Psychosis Acute
[2017-03-28] MEDS: risperiDONE 2 MG TAB PO SCH (21:21)
[2017-03-28] MEDS: LITHIUM CARBONATE ER 450 MG TAB PO SCH (21:21)
--- NOTE | 2017-03-29 20:18 | SOAPPROG ---
SOAP Progress Note Assessment/Plan: Assessment: Plan: 03/27/17 11:04 Remains disorganized. Eating and sleeping. CCM. 03/28/17 13:47 Much improved today. Disorganization is improving, psychosis is abating. Will decrease Risperdal to 2mg at patient's request, at least until I can talk with Dr. Gupta to confirm the dose. 03/29/17 20:18 Continued gradual improvement. CCM. Subjective: Pt seen, discussed with staff. Reports feeling "better every day." States he believes he will be ready for d/c Friday. Daily improvement continues. Objective: Vital Signs Temp Pulse Resp BP Pulse Ox 36.4 C 61 14 132/76 H 96 03/29/17 06:00 03/29/17 06:00 03/29/17 06:00 03/29/17 06:00 03/29/17 06:00 MSE: Calm, coop. Appropriately interactive. Affect is constricted, stable. Mood is "better." TP linear. TC reveals fewer idiosyncratic thoughts, more appropriate interpretations. - Time Spent With Patient Time Spent With Patient: 15" ICD10 Worksheet Patient Problems: Problems Problem Status Onset Bipolar 1 disorder Acute Psychosis Acute Schizoaffective disorder Acute Acute psychosis Acute Psychosis Acute
[2017-03-29] MEDS: risperiDONE 2 MG TAB PO SCH (21:48)
[2017-03-29] MEDS: LITHIUM CARBONATE ER 450 MG TAB PO SCH (21:48)
--- NOTE | 2017-03-30 21:10 | SOAPPROG ---
SOAP Progress Note Assessment/Plan: Assessment: 26yo male with SZA d/o, manic/psychotic. Improving gradually since admission. 03/30/17 16:59 per staff, slept 8hr. pt reports no medication s/e except "that they make me want a snuggly blanket and hot chocolate". also wants AG privs. MSE: bright, cooperative, engaging, articulate, not pressured in speech, nml rate/vol, good eye contact, casually dressed, mood "good", affect full, making jokes, denied any psychotic sxs (after initially asked about psychotic sxs, pt pretended to be paranoid/hypervigilant very briefly then laughed, "I'm just kidding!"). Denied any SI or thoughts to harm others. i/j both seem fair. cognition grossly intact. Plan: cont current meds as per primary team Objective: Vital Signs Temp Pulse Resp BP Pulse Ox 36.5 C 71 16 121/58 H 96 03/30/17 06:23 03/30/17 06:23 03/30/17 06:23 03/30/17 06:23 03/30/17 06:23 - Time Spent With Patient Time Spent With Patient: 15min - Pending Discharge Pending Discharge Within 24 Hours: No Pending Discharge Within 48 Hours: No ICD10 Worksheet Patient Problems: Problems Problem Status Onset Bipolar 1 disorder Acute Psychosis Acute Schizoaffective disorder Acute Acute psychosis Acute Psychosis Acute
[2017-03-30] MEDS: LITHIUM CARBONATE ER 450 MG TAB PO SCH (22:09)
[2017-03-30] MEDS: risperiDONE 2 MG TAB PO SCH (22:10)
--- NOTE | 2017-03-31 15:51 | SOAPPROG ---
SOAP Progress Note Assessment/Plan: Assessment: Plan: 03/27/17 11:04 Remains disorganized. Eating and sleeping. CCM. 03/28/17 13:47 Much improved today. Disorganization is improving, psychosis is abating. Will decrease Risperdal to 2mg at patient's request, at least until I can talk with Dr. Gupta to confirm the dose. 03/29/17 20:18 Continued gradual improvement. CCM. 03/31/17 15:51 Doing better though remains psychotic. Will attempt to convince him to stay a bit longer due to continued psychosis. Will enlist pt's family in this endeavor. Subjective: Pt seen, discussed with staff. Reports feeling "really good." Denies any AH's , though RN noted him talking loudly or even arguing with unseen persons while alone in his room earlier. He remains concrete, impassive. Compliant with meds. He states he is ready to d/c tonight. I asked him to discuss this with his brother in law first. Objective: Vital Signs Temp Pulse Resp BP Pulse Ox 36.6 C 64 14 111/74 96 03/31/17 06:35 03/31/17 06:35 03/31/17 06:35 03/31/17 06:35 03/31/17 06:35 MSE: Calm, though guarded. Affect is constricted, stable. Mood is "good." TP linear. TC reveals possible ongoing AH's/RIS. No SI/HI/. - Time Spent With Patient Time Spent With Patient: 25" - Pending Discharge Pending Discharge Within 24 Hours: No Pending Discharge Within 48 Hours: No ICD10 Worksheet Patient Problems: Problems Problem Status Onset Bipolar 1 disorder Acute Psychosis Acute Schizoaffective disorder Acute Acute psychosis Acute Psychosis Acute
[2017-03-31] MEDS: LITHIUM CARBONATE ER 450 MG TAB PO SCH (20:26)
[2017-03-31] MEDS: risperiDONE 2 MG TAB PO SCH (20:26)
--- NOTE | 2017-04-01 17:18 | SOAPPROG ---
SOAP Progress Note Assessment/Plan: Assessment: Plan: 03/27/17 11:04 Remains disorganized. Eating and sleeping. CCM. 03/28/17 13:47 Much improved today. Disorganization is improving, psychosis is abating. Will decrease Risperdal to 2mg at patient's request, at least until I can talk with Dr. Gupta to confirm the dose. 03/29/17 20:18 Continued gradual improvement. CCM. 03/31/17 15:51 Doing better though remains psychotic. Will attempt to convince him to stay a bit longer due to continued psychosis. Will enlist pt's family in this endeavor. 04/01/17 17:16 Remains disorganized, likely AH's. IMproving but still disorganized. CCM. Subjective: Pt seen, discussed with staff. Reports feeling "pretty bad" yesterday. States he was not ready to d/c. Staff notes him to continue to isolate in his room, not attending groups. Talking loudly to himself in his room. When I ask about this he states, "I'm not hearing voices, I just like to talk to myself in a loud voice." Agreeable to staying a few more days and having a family meeting. Objective: Vital Signs Temp Pulse Resp BP Pulse Ox 36.4 C 66 14 95/62 L 95 04/01/17 06:00 04/01/17 06:00 04/01/17 06:00 04/01/17 06:00 04/01/17 06:00 MSE: Guarded, closed body posture. Does try to make a joke at one point. Affect is constricted, stable. Mood is "better." TP linear at times, derails at others. Internally preoccupied. Denies AH's. - Time Spent With Patient Time Spent With Patient: 25" - Pending Discharge Pending Discharge Within 24 Hours: No Pending Discharge Within 48 Hours: No ICD10 Worksheet Patient Problems: Problems Problem Status Onset Bipolar 1 disorder Acute Psychosis Acute Schizoaffective disorder Acute Acute psychosis Acute Psychosis Acute
[2017-04-01] MEDS: LITHIUM CARBONATE ER 450 MG TAB PO SCH (20:19)
[2017-04-01] MEDS: risperiDONE 2 MG TAB PO SCH (20:19)
--- NOTE | 2017-04-02 15:08 | SOAPPROG ---
SOAP Progress Note Assessment/Plan: Assessment: Plan: 03/27/17 11:04 Remains disorganized. Eating and sleeping. CCM. 03/28/17 13:47 Much improved today. Disorganization is improving, psychosis is abating. Will decrease Risperdal to 2mg at patient's request, at least until I can talk with Dr. Gupta to confirm the dose. 03/29/17 20:18 Continued gradual improvement. CCM. 03/31/17 15:51 Doing better though remains psychotic. Will attempt to convince him to stay a bit longer due to continued psychosis. Will enlist pt's family in this endeavor. 04/01/17 17:16 Remains disorganized, likely AH's. IMproving but still disorganized. CCM. 04/02/17 15:10 Slow improvement. [facility]. Hope to arrange family meeting tomorrow. Subjective: Pt seen, discussed with staff. Reports feeling "good." Continues to prefer to isolate in his room, but did participate in at least one afternoon group today. He remains very concrete, internally focused. Struggles to discuss involvement with his family. Tells that he hasn't been communicating with his sister recently and was ambivalent about having a family meeting. I discussed this with him and he is agreeable with me. Compliant with meds. Objective: Vital Signs Temp Pulse Resp BP Pulse Ox 36.4 C 61 18 103/69 97 04/02/17 06:00 04/02/17 06:00 04/02/17 06:00 04/02/17 06:00 04/02/17 06:00 MSE: Calm, though guarded. Sits with a closed body posture. Intermittent eye contact. Affect is constricted, stable. Mood is "good." TP linear, though abbreviated. Delay in response persists, though improved. TC reveals some continued internal preoccupation. - Time Spent With Patient Time Spent With Patient: 25" ICD10 Worksheet Patient Problems: Problems Problem Status Onset Bipolar 1 disorder Acute Psychosis Acute Schizoaffective disorder Acute Acute psychosis Acute Psychosis Acute
[2017-04-02] MEDS: LITHIUM CARBONATE ER 450 MG TAB PO SCH (20:30)
[2017-04-02] MEDS: risperiDONE 2 MG TAB PO SCH (20:30)
[2017-04-03 05:55] VITALS: BP 109/78; PULSE 78; RESP 14; TEMP 97.6; O2SAT 96
--- NOTE | 2017-04-04 18:41 | BDS ---
[f rep st] BEHAVIORAL HEALTH DISCHARGE SUMMARY REASON FOR ADMISSION: Patient is a 26-year-old [place] male, well-known to us from several p revious admissions. He has a history of schizoaffective disorder, with rather rapid deteriorations and severe symptoms. He also has a history of responding well to medicines when he returns to the ospital. He had apparently been noncompliant with his prescribed medications of lithium and Risperd al for unknown period of time prior to admission. He insists that it was only the 2 days prior to a dmission because he was moving and did not have access to his medications, but his sister believes i t could have been longer. His lithium level was less than detectable and it would certainly take mo re than 2 missed doses for this to occur. The patient was adamant that it was only 2 days. Regardl ess, he was noncompliant with his medications and then had severe deterioration. He asked his famil y to take him to the ER because he was hallucinating and was describing hearing 5 different voices. He was having extreme difficulty communicating with disorganized thoughts and prominent thought blo cking. A full description of the events preceding admission can be found in his admission history d ated 03/26/2017. ADMITTING DIAGNOSES: Schizoaffective disorder, bipolar type, chronic with acute exacerbation. 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 ADMITTING PHYSICAL EXAMINATION: Performed by Dr. Valentin Jaramillo, reveals no acute findings. ADMISSION LABORATORY: CBC is normal. Serum chemistry shows sodium of 145, anion gap up at 17, calc ium up at 10.5, otherwise normal. Urine drug screen is negative for all substances. [place] was le ss than detectable. Alcohol was less than detectable. HOSPITAL COURSE: The patient was admitted to the [facility] inpatient unit on an M1 h old. He was very internally preoccupied and demonstrated extremely disorganized thoughts. He was u nable to meaningfully participate in the interview as I would ask a question, and he would persevera te on the answer for several minutes. He was clearly responding to internal stimuli. He was also n oted to be talking to unseen persons in his room on a regular basis. He was agreeable to continuing his medications of lithium and Risperdal, and they were started at what we were told were the outpa tient doses. The lithium was started at 900 mg at bedtime, and Risperdal was started at 6 mg at bed time. Later in his hospitalization, however, when he became more lucid, he was able to state that h e is certain he took 2 mg at bedtime of the Risperdal, not 6. He began to refuse all but 2 mg. We then decreased his dose to 2 mg, and he did well on this dose. On the day of discharge, we had a family meeting with patient's sister present. We discussed his me dications and she requested that he be on a higher dose of Risperdal. I felt like this was appropri ate as patient continued to show residual signs of psychosis and was extremely vulnerable to any dev iation in his regimen. The patient was agreeable to taking 4 mg on an ongoing basis after discharge . Patient's hospitalization was otherwise uncomplicated. He had no behavioral issues, though he was f airly guarded and was only able to participate in groups or be active in the milieu for the last 2 d ays of his stay. CONDITION ON DISCHARGE: Stable. His affect was better modulated, brighter, and his thoughts were l inear. His delay had resolved and he was reporting no auditory hallucinations. He was reporting no thoughts of suicide, homicide or violence. DISCHARGE DIAGNOSES: Schizoaffective disorder, bipolar type, chronic with acute exacerbation. 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 Work stress, recent job change, recent move. Rehospitalization. DISCHARGE MEDICATIONS: [place] carbonate ER 900 mg at bedtime, and Risperdal 4 mg at bedtime. DISPOSITION: Patient left the hospital with his sister to return to her home. FOLLOWUP: With his current providers, Dr. Lino at [facility], and his therapist at the same facility as scheduled by [employer] In[employer]. LEGAL COURSE: Patient was converted to a voluntary status with the expiration of his M1 hold. /[id number]/MODL
== END 2017-04-03 15:45 | disposition home or self-care (01) | DRG 885 ==
LOC: EEVIPCON 07:26 → BBEH 16:15
PROVIDERS: ADMIT Psychiatry & Neurology Psychiatry; ATTEND Psychiatry & Neurology Psychiatry
DX: F25.0 Schizoaffective disorder, bipolar type (principal); Z91.14 Patient's other noncompliance with medication regimen
CPT/HCPCS: 80305; G0480